=== PATIENT | male | born 1995 | race African-American/Black ===

== ENCOUNTER 2020-07-04 08:39 | Emergency (ER) | payer OTHER ==
[2020-07-04] MEDS ORDERED: ACETAMINOPHEN 325 MG TABLET PO STA (09:23)
--- NOTE | 2020-07-04 10:02 | ED Physician Documentation ---
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 He states that he has had lots of vaccinations previously is never had any reactions to them. He has not had HPV vaccination previously last night he developed a fever and headache and this is somewhat better this morning but he was unable to complete his watch last night. He states that he is otherwise not feeling ill and has no other specific symptoms. He denies any rash or shortness of breath. Review of Systems Constitutional: reports: Fever, Chills, Myalgias, Fatigue Eyes: denies: Decreased vision Ears: denies: Ear pain Nose: denies: Rhinorrhea / runny nose, Congestion Throat: denies: Sore throat Cardiac: denies: Chest pain / pressure, Palpitations Respiratory: denies: Dyspnea, Cough GI: denies: Abdominal Pain, Nausea, Vomiting : denies: Dysuria, Frequency Skin: denies: Rash Musculoskeletal: denies: Neck pain, Back pain, Extremity pain Neurologic: denies: Generalized weakness, Focal weakness, Numbness PD PAST MEDICAL HISTORY - Past Medical History Cardiovascular: None Neuro: None Endocrine/Autoimmune: None GI: None : None HEENT: None Psych: None Musculoskeletal: None Derm: None - Past Surgical History Past Surgical History: Yes Ortho: Other - Present Medications Home Medications: Ambulatory Orders Medication Instructions Recorded Confirmed No Known Home Medications 07/04/20 07/04/20 - Allergies Allergies/Adverse Reactions: Allergies Allergy/AdvReac Type Severity Reaction Status Date / Time No Known Drug Allergies Allergy Verified 07/04/20 08:51 - Social History Does the pt smoke?: No Smoking Status: Never smoker Does the pt drink ETOH?: Yes ETOH Use: Liquor Does the pt have substance abuse?: No - Immunizations Immunizations are current?: Yes - POLST Patient has POLST: No PD ED PE NORMAL - Vitals Vital signs reviewed: Yes (hypertensive ) - General General: Alert and oriented X 3, No acute distress, Well developed/nourished, Other (broad smile with mask below the chin) - HEENT HEENT: Atraumatic, PERRL, EOMI, Ears normal, Moist mucous membranes, Pharynx benign, Dentition benign - Neck Neck: Supple, no meningeal sign, No bony TTP - Cardiac Cardiac: RRR, No murmur - Respiratory Respiratory: No respiratory distress, Clear bilaterally - Abdomen Abdomen: Soft, Non tender - Back Back: No CVA TTP, No spinal TTP - Derm Derm: Normal color, Warm and dry, No rash - Extremities Extremities: No deformity, No edema - Neuro Neuro: Alert and oriented X 3, 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, No motor deficit, No sensory deficit, Normal speech Eye Opening: Spontaneous Motor: Obeys Commands Verbal: Oriented GCS Score: 15 - Psych Psych: Normal mood, Normal affect Results - Vitals Vitals: Vital Signs - 24 hr 07/04/20 07/04/20 07/04/20 08:51 09:07 10:06 Temperature 38 C H 37.5 C 37.4 C Heart Rate 81 78 76 Respiratory 16 16 16 Rate Blood Pressure 151/84 H 134/86 H 130/93 H O2 Saturation 97 98 98 Oxygen O2 Source Room air PD MEDICAL DECISION MAKING - ED course Complexity details: re-evaluated patient, considered differential, d/w patient ED course: 24-year-old male with a fever after a immunization is administered Tylenol he does not otherwise a pill appear ill. This does not appear to be an allergic reaction. The patient's fever defervesced is in the emergency department prior to treatment. Departure - Departure Disposition: 01 Home, Self Care Clinical Impression: Vaccination reaction Qualifiers: Encounter type: initial encounter Qualified Code(s): T50.Z95A - Adverse effect of other vaccines and biological substances, initial encounter Condition: Stable Instructions: Vaccine Specific Info Follow-Up: [facility] [Provider Group] Comments: Today it appears you have a febrile reaction to the HPV vaccination. The recommendation is to take Tylenol today and extra fluids. Return for shortness of breath, development of rash or new or concerning symptoms. Forms: Activity restrictions
[2020-07-04 10:08] VITALS: BP 130/93
== END 2020-07-04 10:14 | disposition home or self-care (01) ==
LOC: ED 08:39
DX: R50.83 Postvaccination fever (principal); R51 Headache; T50.Z95A Adverse effect of other vaccines and biological substances, initial encounter; Z20.828 Contact with and (suspected) exposure to other viral communicable diseases
CPT/HCPCS: 87635; 99282; 99283; A9270

== ENCOUNTER 2022-12-08 11:42 | Emergency (ER) | payer OTHER ==
[2022-12-08 11:50] VITALS: BP 151/81
[2022-12-08] MEDS ORDERED: SULFAMETH/TRIMETH DS 800/160 MG TABLET PO STA (13:05)
--- NOTE | 2022-12-08 13:10 | ED Physician Documentation ---
History of Present Illness - Stated complaint Stated Complaint: LT UPPER LEG LUMP - Chief complaint Chief Complaint: Wound - Additonal information Additional information: 27-year-old male. Patient is good historian. Referred to the ER from [facility] for concern of large right buttock abscess. Symptoms began about 3 days ago. Pain with sitting. Has begun to have some fluctuance from the lesion. Reports defecating normally without blood mucus or purulence within the fecal material. No history of similar. Immunizations and tetanus are up-to-date. Review of Systems Constitutional: reports: Reviewed and negative Skin: reports: Lesions PD PAST MEDICAL HISTORY - Past Medical History Past Medical History: No Cardiovascular: None Neuro: None Endocrine/Autoimmune: None GI: None : None HEENT: None Psych: None Musculoskeletal: None Derm: None - Past Surgical History Past Surgical History: Yes Ortho: Other - Present Medications Home Medications: Ambulatory Orders Medication Instructions Recorded Confirmed HYDROcod/ACETAM 5/325 [Madison 5/325] 1 tablet PO BID PRN #5 tablet 12/08/22 Sulfamethox/Trimeth 800/160 1 each PO BID #14 tablet 12/08/22 [Bactrim Ds 800/160] - Allergies Allergies/Adverse Reactions: Allergies Allergy/AdvReac Type Severity Reaction Status Date / Time No Known Drug Allergies Allergy Verified 12/08/22 11:50 - Social History Does the pt smoke?: No Smoking Status: Never smoker Does the pt drink ETOH?: Yes Does the pt have substance abuse?: No - Immunizations Immunizations are current?: Yes - POLST Patient has POLST: No PD ED PE EXPANDED - General General: Alert, No acute distress - Rectal Rectal: 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 No extension to the perirectal or anal region.) Results - Vitals Vitals: Vital Signs - 24 hr 12/08/22 11:47 Temperature 36.3 C L Heart Rate 76 Respiratory 16 Rate Blood Pressure 151/81 H O2 Saturation 100 Oxygen O2 Source Room air Procedures - Abscess I&D (location) Right buttock Preparation: Betadine Incision: Incised with scalpel, Purulent drainage, Loculations broken, Irrigated, Packed Other: Pt tolerated well, Antibiotic prescribed PD Medical Decision Making - ED course Complexity details: considered differential, d/w patient ED course: 27-year-old male presents with a large buttock on his right abscess that began about 3 days ago. This abscess is within the buttock region and does not extend into the perirectal or perianal region. The abscess was incised and drained at the bedside. Large amount of purulent fluid drained. He will be placed on Bactrim. Packing was placed and I have advised to be removed in 36 to 48 hours. We discussed the usual routine wound care as well as emergent return precautions. I am prescribing a short course of short-acting opioid pain medication for this patient. I have reviewed the patients MEDICAL TECHNOLOGIST CLINICAL and no concerning findings were noted. I have discussed that the opioids are for short term therapy only, and will not be refilled from the ED. Departure - Departure Disposition: 01 Home, Self Care Clinical Impression: Abscess of buttock, right Condition: Stable Record reviewed to determine appropriate education?: Yes Prescriptions: Sulfamethox/Trimeth 800/160 [Bactrim Ds 800/160] 1 each PO BID #14 tablet HYDROcod/ACETAM 5/325 [Madison 5/325] 1 tablet PO BID PRN #5 tablet PRN Reason: Pain Comments: Matheus robins did have a large Abscess here in her buttock. We did do an incision and drainage at the bedside. This however did appear fairly infected and I sent a prescription for Bactrim, an antibiotic, to the [facility] in [place]. You will take it twice daily for the next week. A small amount of packing was placed in your wound. I would like this to remain in place for the next 36 to 48 hours. [facility] should be able to remove it. If it falls out before then it is okay. I do recommend that you take warm sitz bath's twice daily. This will allow warm water to rinse through the wound and aid in healing. Alternatively you can allow warm shower water to rinse through the wound. I would expect that this takes a few weeks to heal. But with the antibiotics you should have improved pain, redness and swelling over the next 48 to 72 hours. If not improving or worsening please return immediately to the ER. I am prescribing a short course of narcotic pain medication for you. These are potentially dangerous and addictive medications that should be used carefully. These medications may constipate you. Take an [id number] stool softener (docusate) twice daily with plenty of water while taking these medications. If you go 24 hours without a bowel movement, take [id number] miralax, per package instructions. Do not drink or drive while taking these medications. If you received narcotic or sedating medications while in the emergency department, do not drive for 24 hours. Store this medication in a safe, secure place and out of reach of children. It is a violation of federal law to give or sell this medication to another person or to use in a manner other than prescribed. The ED will not refill narcotic prescriptions, including prescriptions lost or stolen. To dispose of unwanted medications: 1. [facility] [address] in [place] has a medication drop box. They accept prescription medications (in pill form) Monday through Monday 9:00 a.m. to 5:00 p.m. 2. [facility] accepts prescription medications (in pill form only) for disposal year round. Call for more information. 3. Contact the [facility] for the next [facility] sponsored prescription drug collection event. , [phone], or [phone]; Note that many narcotic pain relievers also contain Tylenol/acetaminophen. Please ensure that your total dose of acetaminophen from all sources does not exceed 3 g (3000 mg) per day.
== END 2022-12-08 13:16 | disposition home or self-care (01) ==
LOC: ED 11:42
DX: L02.31 Cutaneous abscess of buttock (principal)
CPT/HCPCS: 10060; 99282; A9270